=== PATIENT | female | born 1995 | race Caucasian/White ===

== ENCOUNTER 2017-03-04 08:30 | Outpatient (RCR) | payer BC, SELFPAY | END 2017-03-04 08:31 | disposition home or self-care (01) | LOC: PT 08:30 | PROVIDERS: Family Provider Internal Medicine Adolescent Medicine; Visit Provider Orthopaedic Surgery | DX: M25.562 Pain in left knee (principal) | CPT/HCPCS: 97014; 97016; 97110; G0283 ==

== ENCOUNTER → 2018-08-18 10:38 | Outpatient (CLI) | payer BC, SELFPAY ==
[2018-08-18 10:43] LABS: Adenovirus F 40/41, stool Not Detected (NotDetected); Astrovirus Not Detected (NotDetected); Campylobacter Not Detected (NotDetected); Clostridium Difficile A/B, PCR Not Detected (NotDetected); Cryptosporidium Not Detected (NotDetected); Cyclospora Cayetanesis Not Detected (NotDetected); Entamoeba histolytica Not Detected (NotDetected); Enteroaggregative E coli Not Detected (NotDetected); Enteropathogenic E coli Not Detected (NotDetected); Enterotoxigenic E coli Not Detected (NotDetected); Giardia lamblia Not Detected (NotDetected); Norovirus Not Detected (NotDetected); Plesimonas Shigalloides, PCR Not Detected (NotDetected); Rotavirus A Not Detected (NotDetected); Salmonella, PCR Not Detected (NotDetected); Sapovirus Not Detected (NotDetected); Shiga-like toxin E coli Not Detected (NotDetected); Shigella Enterovasive E coli Not Detected (NotDetected); Vibrio Cholerae Not Detected (NotDetected); Vibrio, PCR Not Detected (NotDetected); Yersinia Entercolitica, PCR Not Detected (NotDetected)
== END ==
PROVIDERS: Visit Provider Internal Medicine Adolescent Medicine
DX: K52.9 Noninfective gastroenteritis and colitis, unspecified (principal)
CPT/HCPCS: 87507

== ENCOUNTER → 2018-08-18 11:04 | Outpatient (POV) | payer BC, SELFPAY | PROVIDERS: PCP Internal Medicine Adolescent Medicine; Visit Provider Nurse Practitioner Family | DX: Z00.00 Encounter for general adult medical examination without abnormal findings (principal) ==

== ENCOUNTER → 2018-10-27 11:18 | Outpatient (POV) | payer BC, SELFPAY | PROVIDERS: PCP Internal Medicine Adolescent Medicine; Visit Provider Nurse Practitioner Family | DX: Z00.00 Encounter for general adult medical examination without abnormal findings (principal) ==

== ENCOUNTER → 2019-10-29 19:23 | Outpatient (CLI) | payer BC, SELFPAY ==
[2019-10-31 13:22] LABS: Covid-19 Nasal PCR Sendout Lex Not Detected
== END ==
PROVIDERS: PCP Nurse Practitioner Family; Visit Provider Nurse Practitioner
DX: Z20.828 Contact with and (suspected) exposure to other viral communicable diseases (principal)
CPT/HCPCS: U0004

== ENCOUNTER → 2020-02-22 13:28 | Outpatient (CLI) | payer BC, SELFPAY | PROVIDERS: PCP Internal Medicine Adolescent Medicine; Visit Provider Nurse Practitioner Family | DX: Z11.52 Encounter for screening for COVID-19 (principal); R61 Generalized hyperhidrosis; R05 Cough | CPT/HCPCS: U0003 ==

== ENCOUNTER → 2020-02-25 14:41 | Outpatient (CLI) | payer BC, SELFPAY ==
[2020-02-25 15:09] LABS: Basophils # 0.1 K/mm3 (0-0.2); Eosinophils # 0.1 K/mm3 (0.0-0.4); Eosinophils % 1.2 % (0.1-12.0); Hematocrit 49.4 % (37.0-47.0); Hemoglobin 16.6 g/dL (12.2-16.2); Lymphocytes # 1.9 K/mm3 (0.7-4.5); Lymphocytes % 29.2 % (10-50); Mean Corpuscular HGB Conc 33.7 g/dL (31.8-35.4); Mean Corpuscular Hemoglobin 32.1 pg (27.0-31.2); Mean Corpuscular Volume 95.2 fl (81-99); Mean Platelet Volume 7.9 fl (7.4-10.4); Monocytes # 0.2 K/mm3 (0.1-1.0); Monocytes % 3.2 % (1.7-9.3); Neutrophils # 4.2 K/mm3 (1.8-7.8); Neutrophils % 65.5 % (37.0-80.0); Platelet Count 228 K/mm3 (142-424); Red Blood Count 5.19 M/mm3 (4.20-5.40); Red Cell Distribution Width 12.8 % (11.5-17.5); White Blood Count 6.4 K/mm3 (4.8-10.8)
[2020-02-25 15:30] LABS: Alanine Aminotransferase 14 U/L (12-78); Albumin/Globulin Ratio 1.6 (1.1-1.8); Alkaline Phosphatase 76 U/L (38-126); Anion Gap 12.1 mEq/L (5-15); Aspartate Amino Transferase 25 U/L (14-36); Bilirubin,Total 0.4 mg/dl (0.2-1.3); Blood Urea Nitrogen 16 mg/dl (7-17); Calcium 9.8 mg/dl (8.4-10.2); Carbon Dioxide 28 mmol/L (22.0-30.0); Chloride 103 mmol/L (98-107); Estimated Glomerular Filt Rate 90 ml/min (>60); GFR (African American) 109 ML/MIN (>60); Globulin 3.1 g/dL (1.3-3.2); Glucose 90 mg/dl (74-100); Potassium 4.1 mmoL/L (3.5-5.1); Sodium 139 mmol/L (136-145); Total Protein,Serum 8.1 g/dl (6.3-8.2)
[2020-02-25 15:49] LABS: Free Thyroxine Index 1.7 ug/dL (5.93-13.13); T4 (Thyroxine) 5.1 ug/dl (5.53-11.0); Triiodothryronine (T3) Uptake 34 % (23.5-40.5)
[2020-02-25 16:02] LABS: Thyroid Stimulating Hormone 0.66 uIU/mL (0.465-4.68)
[2020-03-01 10:49] LABS: QuantiFERON-TB Gold Plus Negative (Negative)
== END ==
PROVIDERS: Visit Provider Nurse Practitioner Family
DX: R05 Cough (principal); R61 Generalized hyperhidrosis
CPT/HCPCS: 36415; 80053; 84436; 84443; 84479; 85025; 86480

== ENCOUNTER → 2020-03-07 13:03 | Outpatient (CLI) | payer BC, SELFPAY ==
--- NOTE | 2020-03-07 13:15 | US_ITS ---
PROCEDURE: US THYROID CLINICAL INDICATION: NIGHT SWEATS, OTHER FATIGUE COMPARISON: No exams were available for comparison FINDINGS: Right lobe: 1.2cm x 4.2cm x 1.2cm Left lobe: 1.1cm x 4.0cm x 1.6cm. 5 x 4 mm isoechoic nodule in the lower pole on the left. Isthmus: Unremarkable Additional findings: None. There is homogeneous echogenicity of the thyroid gland on both sides. IMPRESSION: 5 mm isoechoic nodule lower pole on the left otherwise negative thyroid ultrasound. T rads level 3 less than 1.5 cm. Consider annual follow-up. Dictated by: Chato Gauthier MD 03/08/2020 10:02 Chato Gauthier MD in [place] 03/08/2020 10:02
== END ==
PROVIDERS: PCP Internal Medicine Adolescent Medicine; Visit Provider Nurse Practitioner Family
DX: R53.83 Other fatigue (principal); R61 Generalized hyperhidrosis
CPT/HCPCS: 76536

== ENCOUNTER 2020-04-30 14:14 | Emergency (ER) | payer BC, SELFPAY ==
[2020-04-30 14:15] VITALS: BP 125/52; PULSE 81; RESP 16; TEMP 36.6; O2SAT 98; BMI 19.8
--- NOTE | 2020-04-30 14:49 | HMH.EDUROGF ---
ED Disposition Clinical Impression: Foreign body accidentally entering opening of body cavity Disposition: Home, Self-Care Condition on Discharge: Good Referrals: Yassine Sher MD [Primary Care Provider] - - Critical Care Critical Care Time: No Attestation: On 04/30/20, the high probability of a clinically significant, sudden or life threatening deterioration of the following system(s) required my full and direct attention, intervention and personal management. The time I documented below is in addition to time spent performing reported procedures but includes the following listed in this critical care notation. Medical Decision Making - Medical Records Medical records reviewed: Yes: I reviewed the patient's medical records. - Dusty Inquiry Pt receiving controlled substance: No Vital Signs: 04/30/20 14:15 04/30/20 15:04 Temperature 98 F Temperature Source Oral Pulse Rate [Radial] 81 69 Respiratory Rate 16 18 Blood Pressure [Right Arm] 125/52 L 175/91 H Blood Pressure Mean [Right Arm] 76 119 Blood Pressure Position [Right Arm] Sitting Supine 02 Sat by Pulse Oximetry 98 99 Oxygen Delivery Method Room Air - Lab Data Lab results reviewed: Yes: I reviewed the patient's lab results. Lab Results 04/30/20 15:00: Urine Color Yellow, Urine Appearance Clear, Urine pH 6.0, Ur Specific [place] >= 1.030, Urine Protein Negative, Urine Glucose (UA) Negative, Urine Ketones Negative, Urine Blood Trace-l, Urine Nitrate Negative, Urine Bilirubin Negative, Urine Urobilinogen 0.2, Ur Leukocyte Esterase Negative, Urine RBC Occasional, Urine WBC None, Ur Squamous Epith Cells Occasional, Amorphous Sediment Trace, Urine Bacteria None Female Urogenital HPI - General Chief complaint: Urogenital-Female Stated complaint: needing pelvic exam Time Seen by Provider: 04/30/20 14:45 Mode of Arrival: Ambulatory Limitations: No Limitations Description of Symptoms (Recalled from ER Triage Doc. by RN): PT C/O DARK VAG DISCHARGE PT STATES JUST FINISHED HER PEROID AND UNSURE IF SHE HAD A TAMPON IN AND NOW SHE IS CAN'T FIND IT - History of Present Illness HPI Narrative: This is a 25-year-old female presents with 2 to 3-day history of lower abdominal/pelvic cramping. Patient reports just coming off menstrual cycle. She also reports just coming out of monogamous relationship and has had multiple partners. She endorses foul-smelling dark discharge earlier this morning which prompted her to come to the emergency department. She does have concerned that there is retained tampon from her recent menstrual cycle. Cramping is intermittent and variable intensity. No exacerbating or alleviating measures. No significant dysuria hematuria or foul-smelling urine. No fever or chills. : No - Related Data Home Medications Medication Instructions Recorded Confirmed Levocetirizine Dihydrochloride 5 mg PO DAILY 08/24/17 08/26/18 Montelukast Sodium [Montelukast 10 mg PO HS 08/24/17 08/26/18 10mg Tab] Allergies Allergy/AdvReac Type Severity Reaction Status Date / Time No Known Allergies Allergy Verified 08/24/17 16:51 [facility] History - Hepatitis A Screen Drug use history?: No High risk sexual behaviors?: No History of sexually transmitted infection?: No Currently employed?: No Childcare worker?: No Do you have indoor plumbing?: Yes Do you have electricity?: Yes Attestation statement:: This patient has been screened for Hepatitis A risk factors. I have reviewed the patient's past medical history: Yes Medical History: Reports:: Anxiety, Asthma, Depression, Lung Disease (asthma) Denies:: Cancer, Diabetes Mellitus Type 1, Diabetes Mellitus Type 2, Internal Pacemaker, MRSA, Seizures Other Surgeries: No: Pacemaker Amputation: No Fractures: No - Social History Smoking Status: Never smoker Alcohol Intake: never Substance Use Type: marijuana Occupational Status: other (Unknown) - Psychiatric History
[2020-04-30 15:04] VITALS: BP 175/91; PULSE 69; RESP 18; O2SAT 99
[2020-04-30 15:07] LABS: Microscopic, Urine URINE MICROSCOPIC (MICROSCOPIC)
[2020-04-30 15:08] LABS: Appearance,Urine CLEAR (Clear); Bilirubin,Urine Negative (Negative); Blood, Urine TRACE-L (Negative); Color,Urine YELLOW (Yellow); Glucose,Urine (UA) Negative (Negative); Ketones,Urine Negative (Negative); Leukocyte Esterase,Urine Negative (Negative); Nitrate,Urine Negative (Negative); Protein,Urine Negative (Negative); Specific Gravity, Urine >= 1.030 (1.005-1.030); Urobilinogen,Urine 0.2 EU/dl (0.2)
[2020-04-30 15:16] LABS: Amorphous Sediment,Urine Trace /lpf; RBC,Urine Occasional #/hpf (0-3); Squamous Epithelial Cell,Urine Occasional #/hpf (0-5)
[2020-04-30 15:27] VITALS: BP 110/65; PULSE 75; RESP 18; TEMP 36.7; O2SAT 100
== END 2020-04-30 15:27 | disposition home or self-care (01) ==
PROVIDERS: Emergency Provider Emergency Medicine; PCP Internal Medicine Adolescent Medicine
DX: T19.2XXA Foreign body in vulva and vagina, initial encounter (principal); J45.909 Unspecified asthma, uncomplicated; F41.8 Other specified anxiety disorders
CPT/HCPCS: 81001; 99283

== ENCOUNTER → 2020-07-28 13:00 | Outpatient (CLI) | payer BC, SELFPAY ==
[2020-07-28 13:30] LABS: Urine Pregnancy, HCG Qual. Negative (Negative)
== END ==
PROVIDERS: Visit Provider Nurse Practitioner Family
DX: R10.9 Unspecified abdominal pain (principal); R31.9 Hematuria, unspecified
CPT/HCPCS: 81025

== ENCOUNTER → 2020-07-28 14:55 | Outpatient (CLI) | payer BC, SELFPAY ==
--- NOTE | 2020-07-28 15:04 | CT_ITS ---
PROCEDURE: CT ABDOMEN PELVIS WO CON CLINICAL INDICATION: HEMATURIA Right flank pain with hematuria COMPARISON: CT ABDPELW CT abdomen pelvis w con from 09/01/2018 TECHNIQUE: Axial images obtained with sagittal and coronal reformats. All CT scans at the facility use one or more dose reduction, viz: automated exposure control, ma/kV adjustment per patient size (including targeted exams where dose is matched to indication, i.e. head), or iterative reconstruction technique. FINDINGS: LOWER THORAX: There are minimal fibrotic changes in the left lung base ABDOMEN & PELVIS: The liver, spleen, adrenal glands, and pancreas has an unremarkable unenhanced appearance. No renal or ureteral calculi. No hydronephrosis. There is some mild haziness of the right renal pelvic fat nonspecific but could be seen with urinary tract infection. No perinephric fluid collections are evident. No evidence of appendicitis. There is a mild amount of fluid in the cul-de-sac. No intestinal obstruction or free air. Multiple unopacified bowel loops in the abdomen or pelvis which could obscure or mimic pathology. If symptoms persist, consider repeat exam with IV and oral contrast.. There is minimal lumbar curvature convex left. IMPRESSION: 1. No renal or ureteral calculi. 2. Minimal haziness of the right parapelvic renal fat which could be seen with urinary tract infection. Please correlate with clinical parameters. 3. Mild amount of fluid in the cul-de-sac. Dictated by: Chato Gauthier MD 07/28/2020 16:08 Chato Gauthier MD in [place] 07/28/2020 16:08
== END ==
PROVIDERS: PCP Nurse Practitioner Family; Visit Provider Nurse Practitioner Family
DX: R10.9 Unspecified abdominal pain (principal); R31.9 Hematuria, unspecified
CPT/HCPCS: 74176

== ENCOUNTER 2020-10-24 09:49 | Emergency (ER) | payer BC, SELFPAY ==
--- NOTE | 2020-10-24 09:57 | XR_ITS ---
PROCEDURE INFORMATION: Exam: XR Right Foot Exam date and time: 10/24/2020 9:57 AM Age: 25 years old Clinical indication: Injury or trauma; Other: Horse stepped on foot; Work related; Crushing; Right; Injury date: 10/24/20; Injury details: Pain across the toes and metatarcels TECHNIQUE: Imaging protocol: XR Right foot. Views: 3 or more views. COMPARISON: EXTLRWO CT EXT.LOWER-RT-W/O CONTRAST 08/29/2015 1:11 PM FINDINGS: Bones/joints: There is a bipartite tibial sesamoid at the 1st metatarsal head. There is normal alignment. There is no fracture or subluxation. Soft tissues: Normal. IMPRESSION: No acute fracture.
[2020-10-24 10:05] VITALS: BP 105/48; PULSE 54; RESP 18; TEMP 36.8; O2SAT 99; BMI 20.4
--- NOTE | 2020-10-24 11:10 | HMH.EDUTC ---
[facility] [place] Clinical Impression: Metatarsal bone fracture Qualifiers: Encounter type: initial encounter Metatarsal bone: third Fracture type: closed Fracture alignment: nondisplaced Laterality: right Qualified Code(s): S92.334A - Nondisplaced fracture of third metatarsal bone, right foot, initial encounter for closed fracture Disposition: Home, Self-Care Condition on Discharge: Good Instructions: DI for Toe Fracture, How To Perform RICE (Rest, Ice, Compress, Elevate), How to Use Crutches Additional Instructions: *RICE, Rest the extremity, Ice 15-20 minutes 3-4 times daily, Compress- wear the jose wrap as discussed as much as possible to help reduce swelling and pain, Elevate the extremity when at rest Use crutches to get around *Jose wrap/Post op shoe is for support and help control swelling, use it except in the shower. Be sure that is not to tight but not to loose either *Elevate when resting *Ibuprofen every 6-8 hours as needed for pain an inflammation. If need something more can take Tylenol in between doses of Ibuprofen to help Immediately follow up with your family doctor for new or worsening of symptoms, or no noticeable improvement over the next 3-5 days Follow up with Podiatry call for appointment Follow up with Family Doctor Referrals: Yassine Sher MD [Primary Care Provider] - As needed Sahara Reece DPM [Staff Physician] - Thea Winslow APRN [Nurse Practitioner] - Time of Disposition: 11:21 Medical Decision Making - Dusty Inquiry Pt receiving controlled substance: No Dusty was queried for this patient: No Vital Signs: 10/24/20 10:05 Temperature 98.2 F Temperature Source Oral Pulse Rate [Right Brachial] 54 L Respiratory Rate 18 Blood Pressure [Left Arm] 105/48 L Blood Pressure Mean [Left Arm] 67 Blood Pressure Source [Left Arm] Automatic Cuff Blood Pressure Position [Left Arm] Sitting 02 Sat by Pulse Oximetry 99 Oxygen Delivery Method Room Air - Radiology Data #1 Image(s): Foot/Toes Image Reviewed: Yes I reviewed the patient's radiology image Fracture neck of third Metatars[place] [facility] [place] - General Stated complaint: AO injured right foot, horse stepped on it Time Seen by Provider: 10/24/20 11:17 Mode of Arrival: Ambulatory Source of Information: Patient Limitations: No Limitations Description of Symptoms (Recalled from Triage Doc. by RN): PATIENT STATES A HORSE STOMPED ON RIGHT FOOT THIS MORNING. BRUISING AND SWELLING NOTED HEENT Symptoms (Recalled from RN notes): No Resp Symptoms (Recalled from RN notes): No Skin Symptoms (Recalled from RN notes): No MS Symptoms (Recalled from RN notes): Yes Functional Status (Recalled from RN notes): WNL - History of Present Illness Provider Complaint: Patient state that she was around a horse this morning at work when it stompted on her right foot States that she immediately had bruising and swelling and pain when she would go to walk on it State that she applied ice and came in to get it checked - Related Data Home Medications Medication Instructions Recorded Confirmed Levocetirizine Dihydrochloride 5 mg PO DAILY 08/24/17 08/26/18 Montelukast Sodium [Montelukast 10 mg PO HS 08/24/17 08/26/18 10mg Tab] Allergies Allergy/AdvReac Type Severity Reaction Status Date / Time No Known Allergies Allergy Verified 08/24/17 16:51 - Worker's Comp Is this a Worker's Comp case?: No [facility] History - Hepatitis A Screen Drug use history?: No High risk sexual behaviors?: No History of sexually transmitted infection?: No Currently employed?: No Childcare worker?: No Do you have indoor plumbing?: Yes Do you have electricity?: Yes Attestation statement:: This patient has been screened for Hepatitis A risk factors. I have reviewed the patient's past medical history: Yes Medical History: Reports:: Anxiety, Asthma, Depression, Lung Disease (asthma) Denies:: Cancer, Diabetes Mellitus Type 1, Diabetes Mellitus Type 2, Internal
[2020-10-24 11:24] VITALS: BP 105/48; PULSE 54; RESP 18; TEMP 36.8; O2SAT 99
== END 2020-10-24 11:28 | disposition home or self-care (01) ==
PROVIDERS: Emergency Provider Nurse Practitioner; PCP Internal Medicine Adolescent Medicine
DX: S92.334A Nondisplaced fracture of third metatarsal bone, right foot, initial encounter for closed fracture (principal); W55.19XA Other contact with horse, initial encounter; Y92.89 Other specified places as the place of occurrence of the external cause; F41.8 Other specified anxiety disorders; J45.909 Unspecified asthma, uncomplicated
CPT/HCPCS: 73630; 99202; G0463

== ENCOUNTER 2022-02-10 09:22 | Emergency (ER) | payer BC, SELFPAY ==
[2022-02-10 09:30] VITALS: BP 129/75; PULSE 70; RESP 19; TEMP 37.2; O2SAT 98; BMI 27.3
--- NOTE | 2022-02-10 10:01 | EXP.UTC ---
Discharge Plan Disposition Patient Disposition: Home, Self-Care Condition: Good Prescriptions Prescriptions: New amoxicillin 875 mg tablet 875 mg PO Q12H Qty: 20 0RF methylprednisolone [Medrol (Gigi)] 4 mg tablets,dose pack See Rx Instructions .Route .COMPLEX 6 Days Qty: 21 0RF Rx Instructions: taper pack; fluticasone propionate [Flonase Allergy Relief] 50 mcg/actuation spray,suspension 1 spray intranasal DAILY Qty: 16 0RF Rx Instructions: administer into each nostril No Action norethindrone (contraceptive) [Jencycla] 0.35 mg tablet 0.35 mg PO Label Comments: TAKE 1 TABLET BY MOUTH ONCE DAILY meloxicam [Mobic] 7.5 mg tablet 7.5 mg PO DAILY Qty: 30 2RF methylprednisolone 4 mg tablets,dose pack 4 mg PO PER PKG DIR Qty: 21 0RF mupirocin calcium 2 % cream 1 applic TOPICAL BID 21 Days Qty: 30 0RF mupirocin 2 % ointment 1 applic TOPICAL BID Qty: 30 1RF Rx Instructions: Apply to affected area up to twice daily Referrals Follow up/Referrals: Yassine Sher MD [Primary Care Provider] - See instructions Clinical Impressions Clinical Impression: Otitis media Qualifiers: Otitis media type: unspecified Laterality: left Qualified Code(s): H66.92 - Otitis media, unspecified, left ear Instructions Patient Instructions: Ear Infections (Alternative Therapy), Middle Ear Infection Discharge ED Provider[place]arey Berrios [facility] [place] Stated complaint: left ear pain, sore throat, congestion Mode of Arrival: Ambulatory Source of Information: Patient Limitations: No Limitations Time Seen by Provider: 02/10/22 10:01 Description of Symptoms (Recalled from Triage Doc. by RN): PATIENT C/O LEFT EAR PAIN AND EYE DRAINAGE X 3 DAYS HEENT Symptoms (Recalled from RN notes): Yes Resp Symptoms (Recalled from RN notes): No Skin Symptoms (Recalled from RN notes): No MS Symptoms (Recalled from RN notes): No Functional Status (Recalled from RN notes): WNL History of Present Illness Provider Complaint: Patient states that she has been having sore throat, nasal congestion and pain in left ear that has got worse since Saturday States that last night her left ear was throbbing and she was having drainage and matting in both eyes Related Data Home Medications Medication Instructions Recorded Confirmed norethindrone (contraceptive) 0.35 0.35 mg PO 10/27/20 10/27/20 mg tablet (Jencycla) Previous Rx's Medication Instructions Recorded meloxicam 7.5 mg tablet (Mobic) 7.5 mg PO DAILY pain #30 tabs 10/27/20 methylprednisolone 4 mg tablets in 4 mg PO PER PKG DIR Pain, swelling 10/27/20 a dose pack #21 tabs mupirocin calcium 2 % topical cream 1 applic topical BID wound care 3 10/27/20 weeks #30 grams mupirocin 2 % topical ointment 1 applic topical BID cellulitis 11/10/20 #30 grams amoxicillin 875 mg tablet 875 mg PO Q12H #20 tabs 02/10/22 fluticasone propionate 50 1 spray intranasal DAILY #16 grams 02/10/22 mcg/actuation nasal spray,suspension (Flonase Allergy Relief) methylprednisolone 4 mg tablets in See Rx Instructions .Route 02/10/22 a dose pack (Medrol (Gigi)) .COMPLEX 6 days #21 tabs Allergies Allergy/AdvReac Type Severity Reaction Status Date / Time No Known Allergies Allergy Verified 10/27/20 08:09 Worker's Comp Is this a Worker's Comp case?: No [facility] Disclaimer: The information contained in this section may have been updated after the patient was seen, as this information can be updated by other users. Medical History (Updated 02/10/22 @ 10:06 by Karey Berrios APRN) Asthma Social History (Updated 02/10/22 @ 09:43 by Krystina Mccormick RN) Smoking Status: Never smoker alcohol intake: current substance use type: marijuana current occupational status: employed Travel in the last 8 weeks: None caffeine: No ROS Obtained: Yes All systems reviewed & no additional complaints except as documented and Yes Systems
[2022-02-10 10:14] LABS: UTC Pregnancy Test, Urine Negative (Negative)
[2022-02-10 10:26] VITALS: BP 129/75; PULSE 70; RESP 19; TEMP 37.2; O2SAT 98
== END 2022-02-10 10:27 | disposition home or self-care (01) ==
PROVIDERS: Emergency Provider Nurse Practitioner; PCP Internal Medicine Adolescent Medicine
DX: H66.92 Otitis media, unspecified, left ear (principal)
CPT/HCPCS: 81025; 99212; G0463

== ENCOUNTER → 2022-07-18 14:10 | Outpatient (CLI) | payer BC, SELFPAY ==
--- NOTE | 2022-07-18 14:13 | US_ITS ---
FINAL REPORT CLINICAL HISTORY: FOLLOW UP FINDINGS: Limited sonographic images of the thyroid were obtained. The right lobe of the thyroid measures 4.6 cm in length. The left lobe of the thyroid measures 4.2 cm in length. There is a hypoechoic solid nodule in the lower pole of the left lobe measuring 6 mm consistent with TI-RADS category 4. The isthmus measures 2 mm. IMPRESSION: Left thyroid lobe mass consistent with TI-RADS category 4. No follow-up is required. Reviewed, Interpreted and Dictated by Cristian Blackman MD Transcribed by Harini Gupta Authenticated and [facility]
== END ==
LOC: RAD 14:10
PROVIDERS: PCP Internal Medicine Adolescent Medicine; Visit Provider Nurse Practitioner Family
DX: E04.1 Nontoxic single thyroid nodule (principal)
CPT/HCPCS: 76536

== ENCOUNTER → 2022-11-13 11:19 | Outpatient (CLI) | payer BC, SELFPAY ==
[2022-11-13 12:01] LABS: Basophils % 0.5 % (0.1-2.0); Eosinophils # 0.3 K/mm3 (0.0-0.4); Eosinophils % 3.6 % (0.1-12.0); Hematocrit 45.9 % (37.0-47.0); Hemoglobin 14.5 g/dL (12.2-16.2); Lymphocytes # 1.8 K/mm3 (0.7-4.5); Lymphocytes % 23.3 % (10-50); Mean Corpuscular HGB Conc 31.5 g/dL (31.8-35.4); Mean Corpuscular Hemoglobin 29.7 pg (27.0-31.2); Mean Corpuscular Volume 94.4 fl (81-99); Monocytes # 0.3 K/mm3 (0.1-1.0); Monocytes % 3.8 % (1.7-9.3); Neutrophils # 5.3 K/mm3 (1.8-7.8); Neutrophils % 68.8 % (37.0-80.0); Platelet Count 236 K/mm3 (142-424); Red Blood Count 4.86 M/mm3 (4.20-5.40); Red Cell Distribution Width 12.8 % (11.5-17.5); White Blood Count 7.7 K/mm3 (4.8-10.8)
[2022-11-13 13:54] LABS: Alanine Aminotransferase 13 U/L (12-78); Albumin Level 4.5 g/dl (3.5-5.0); Albumin/Globulin Ratio 1.5 (1.1-1.8); Alkaline Phosphatase 39 U/L (38-126); Anion Gap 15.2 mEq/L (5-15); Aspartate Amino Transferase 18 U/L (14-36); Bilirubin,Total 0.4 mg/dl (0.2-1.3); Blood Urea Nitrogen 10 mg/dl (7-17); Calcium 9.4 mg/dl (8.4-10.2); Carbon Dioxide 23 mmol/L (22.0-30.0); Chloride 104 mmol/L (98-107); Estimated Glomerular Filt Rate 87 ml/min (>60); GFR (African American) 106 ML/MIN (>60); Glucose 62 mg/dl (74-100); Potassium 4.2 mmoL/L (3.5-5.1); Sodium 138 mmol/L (136-145); Total Protein,Serum 7.5 g/dl (6.3-8.2)
[2022-11-13 14:11] LABS: HCG,Quantitative 13491 mIU/ml (0-5.42)
[2022-11-13 14:26] LABS: Thyroid Stimulating Hormone 1.57 uIU/mL (0.465-4.68)
== END ==
PROVIDERS: Nurse Practitioner Family; PCP Internal Medicine Adolescent Medicine; Visit Provider Internal Medicine Adolescent Medicine
DX: N91.2 Amenorrhea, unspecified (principal); Z32.01 Encounter for pregnancy test, result positive
CPT/HCPCS: 36415; 80053; 84443; 84702; 85025